=== PATIENT | female | born 1980 | race Caucasian/White ===

== ENCOUNTER → 2016-04-21 | Day surgery (SDC) | payer OTHER ==
[~2016-04-21] VITALS: Ht 157.5 cm; Wt 57.9 kg
[~2016-04-21] MED LIST: PROPOFOL 40 ML ONE; multivitamin
[2016-04-21 15:57] VITALS: Ht 157.5 cm; Wt 57.9 kg
[2016-04-21 15:58] VITALS: BP 108/68; PULSE 78; RESP 18
[2016-04-21 17:00] VITALS: BP 109/56; PULSE 72; RESP 18
--- NOTE | 2016-04-22 15:28 | GILP ---
DATE OF PROCEDURE: 04/21/2016 PROCEDURE: Colonoscopy with biopsies. SURGEON: Matthew Frias MD BRIEF HISTORY AND INDICATIONS: The patient is being evaluated for hematochezia. PREMEDICATION: Monitored anesthesia care by anesthesiologist. INSTRUMENT USED: Olympus colonoscope. TECHNIQUE: After informed consent, with the patient/relatives understanding the procedure, its indic ations potential risks and complications, including but not limited to: allergic reaction, bleeding, perforation, infection, missed lesions and after all pertinent questions were answered to the patie nt's satisfaction, the patient/relatives signed the witnessed informed consent. Following this, premedication was administered slowly IV push by under careful cardiovascular and re spiratory monitoring with pulse oximetry, automatic blood pressure and housekeeping cleaner. Once the sedativ e effect was achieved, the patient was placed in the left lateral decubitus position, digital rectal examination was performed. The colonoscope was then introduced and advanced under visual control th roughout all segments of the colon including: the rectum, sigmoid, descending colon, splenic flexure , transverse colon, hepatic flexure, ascending colon and finally reaching the cecum which was clearl y identified by transillumination, finger indentation and the ileocecal valve. Careful examination o f the mucosa of the lower gastrointestinal tract both on insertion as well as withdrawal of the inst rument disclosed the following findings: Rectal Examination: No evidence of perirectal disease, no masses. Colonic Mucosa: The colonic mucosa entirely unremarkable throughout. The ileocecal valve was clear ly identified and appears unremarkable. The instrument was withdrawn reexamining the mucosa in deta il. No additional abnormalities are noted. Random biopsies were obtained to rule out microscopic, lymphocytic or collagenous colitis. Moderate sized internal hemorrhoids are noted on withdrawal of the instrument through the anal canal . The instrument was then withdrawn, the patient tolerated the procedure well and was transferred out of the [facility]oscopy Suite awake and in good condition to continue recovery under observation. IMPRESSION: 1. Normal colonic mucosa to cecum, rule out microscopic, lymphocytic or collagenous colitis. Biops ies obtained. 2. Moderate sized internal hemorrhoids. PLAN: The patient will be followed up as an outpatient. Pathology will be reviewed as soon as adrienne garrett. Further recommendation will depend on her clinical course. Dictated By: MATTHEW FRIAS MS/EVELINE Conf#: [id number] DID#: [id number] CC: MATTHEW FRIAS;*End*
== END | disposition home or self-care (01) ==
LOC: GIL 13:30
PROVIDERS: ATTEND Internal Medicine Gastroenterology
DX: K92.1 Melena (principal); K64.8 Other hemorrhoids
CPT/HCPCS: 45380; 84703; 88305; Z7610